=== PATIENT | female | born 1950 | race Two or more races ===

== ENCOUNTER 2018-08-15 21:41 | Emergency (ER) | payer SELFPAY ==
[2018-08-15 22:11] VITALS: BP 152/91; PULSE 81; TEMP 98.3; BMI 30.2
--- NOTE | 2018-08-15 22:39 | PDOC ---
History of Present Illness - General Chief Complaint: Injury Stated Complaint: FALL Time Seen by Provider: 08/15/18 22:39 History Source: Patient, Family Exam Limitations: No Limitations - History of Present Illness Initial Comments: 08/15/18 23:00 67 year old female with no PMH presented to ED for left wrist pain, left elbow pain, head laceration, head injury s/p fall down two stairs today. Pt stated she lost her balance on the second to last step, falling down and hitting her head. She denied chest pain, shortness of breath, lightheadedness, LOC, vomiting , weakness, numbness, tingling, visual changes, dizziness. Allergies: NKDA Past History - Past Medical History Allergies/Adverse Reactions: Allergies Allergy/AdvReac Type Severity Reaction Status Date / Time No Known Allergies Allergy Verified 08/16/18 09:00 Home Medications: Ambulatory Orders NK [No Known Home Medication] 08/16/18 - Suicide/Smoking/Psychosocial Hx Smoking History: Never smoked Have you smoked in the past 12 months: No Information on smoking cessation initiated: No Hx Alcohol Use: No Drug/Substance Use Hx: No Review of Systems - Review of Systems Able to Perform ROS?: Yes Comments:: 08/15/18 23:03 General: denied fever, chills, generalized weakness. HEENT: denied sore throat, rhinorrhea, ear pain. Heart: denied chest pain, palpitations, syncope, diaphoresis. Respiratory: denied shortness of breath, cough, sputum production, hemoptysis. Abdomen: denied abdominal pain, nausea, vomiting, diarrhea, constipation, blood in stool. : denied dysuria, increased urinary frequency, hematuria, urinary incontinence , flank pain. Back: denied back pain. Musculoskeletal: admitted to left wrist pain, left elbow pain. Neurological: admitted to headache. denied dizziness, numbness, tingling, weakness. Skin: admitted to laceration. denied rash, abrasion. *Physical Exam - Vital Signs Last Vital Signs Temp Pulse Resp BP Pulse Ox 98.3 F 81 18 152/91 96 08/15/18 21:45 08/15/18 21:45 08/15/18 21:45 08/15/18 21:45 08/15/18 21:45 - Physical Exam Comments: 08/15/18 23:04 Constitutional: Well-nourished, Well-developed, appearing stated age. HEENT: left frontal scalp hematoma with overlying oozing 4 cm laceration. left infraorbital facial tenderness and swelling. EOMI. PERRLA. Neck: supple. Full ROM. no midline c-spine tenderness. no paraspinal tenderness. Heart: regular rhythm. no murmurs, rubs or gallops. Chest: no tenderness to palpation of anterior or lateral chest wall bilaterally. Lungs: clear to auscultation bilaterally. no crackles, rhonchi or wheezing. no stridor. Abdomen: soft, nontender. normal bowel sounds. no rebound, guarding, masses. Back: no midline T-spine or L-spine tenderness to palpation. no low back tenderness. Pelvis: no hip tenderness. limbs equal in length. uterine prolapse. Extremities: left wrist deformity and swelling and tenderness. capillary refill <2 seconds bilateral hands. radial pulse 2+ bilaterally. full ROM left elbow. no elbow tenderness. Neurological: CN 2-12 grossly intact. moves all four extremities. Psych: awake, alert, oriented x3. follows commands. answers questions appropriately. Moderate Sedation - Procedure Monitoring Vital Signs: Procedure Monitoring Vital Signs Temperature 98.3 F 08/15/18 21:45 Pulse Rate 81 08/15/18 21:45 Respiratory Rate 18 08/15/18 21:45 Blood Pressure 152/91 08/15/18 21:45 O2 Sat by Pulse Oximetry (%) 96 08/15/18 21:45 Procedures - Splinting Splint Location: Left: Forearm Pre-Proc Neuro Vasc Exam: normal Hand-Made Type: orthoglass Splint Type: Yes: Sugar Tong Post-Proc Neuro Vasc Exam: normal Anatoliy Bandage: yes Sling: Yes Complications: No Post splint xray: No Good repositioning: Yes ED Treatment Course - LABORATORY CBC & Chemistry Diagram: 08/15/18 22:45 08/15/18 22:45 Medical Decision Making - Medical Decision Making 08/15/18 23:07 67 year old female with no PMH presented to ED after fall down stairs, complaining of left wrist pain, left elbow pain, headache, laceration. Last tetanus unknown. Initial Vital Signs Temp Pulse Resp BP Pulse Ox 98.3 F 81 18 152/91 96 08/15/18 21:45 08/15/18 21:45 08/15/18 21:45 08/15/18 21:45 08/15/18 21:45 Afebrile. No tachycardia. No tachypnea. Mild hypertension. No hypoxia on room air. Labs ordered: CBC, CMP, troponin, coags, T/S Imaging ordered: CT head, CT cervical spine, CT facial bones, left wrist XR, left elbow XR, left forearm XR, CXR, pelvis XR Medications ordered: tylenol IV, boostrix IM Compression dressing applied to left forehead. EKG performed at 08/15/18 23:41 CBC WBC 6.5 K/mm3 (4.0-10.0) 08/15/18 22:45 RBC 4.80 M/mm3 (3.60-5.2) 08/15/18 22:45 Hgb 15.0 GM/dL (10.7-15.3) 08/15/18 22:45 Hct 42.9 % (32.4-45.2) 08/15/18 22:45 MCV 89.5 fl (80-96) 08/15/18 22:45 MCH 31.3 pg (25.7-33.7) 08/15/18 22:45 MCHC 34.9 g/dl (32.0-36.0) 08/15/18 22:45 RDW 13.2 % (11.6-15.6) 08/15/18 22:45 Plt Count 175 K/MM3 (134-434) 08/15/18 22:45 MPV 9.1 fl (7.5-11.1) 08/15/18 22:45 Absolute Neuts (auto) 4.6 K/mm3 (1.5-8.0) 08/15/18 22:45 Neutrophils % 71.3 % (42.8-82.8) 08/15/18 22:45 Lymphocytes % 20.5 % (8-40) 08/15/18 22:45 Monocytes % 7.2 % (3.8-10.2) 08/15/18 22:45 Eosinophils % 0.6 % (0-4.5) 08/15/18 22:45 Basophils % 0.4 % (0-2.0) 08/15/18 22:45 Nucleated RBC % 0 % (0-0) 08/15/18 22:45 No leukocytosis. No anemia. 08/16/18 00:25 CT head report: no acute hemorrhage, midline shift, gross mass lesion, focal infarct. CT facial bones report: no gross fracture. both orbits appear intact. moderate soft tissue swelling over left lateral aspect ofthe face over the zygomatic arch and lateral aspect of the left orbit extending to the left lateral aspect of the forehead where soft tissue air is present compatible with a skin laceration. CT cervical spine report: no gross fracture/subluxation. deformity shaped of the aortic arch suggestive of tortuous proximal descending thoracic aorta. 08/16/18 00:58 XRs showing distal radius fractures. Pelvis XR: no fracture/dislocation - Pending official reports. CXR no acute pathology. - Pending official report. 08/16/18 01:27 Prolapsed uterus reduced. Sugartong splint applied to left forearm. Neurovascularly intact pre and post splinting. Pt tolerated procedure well. See above procedure note. Yessenia Chambers MD, EM Resident will be performing the laceration repair. 08/16/18 02:07 Urine Test Results Urine Color Straw 08/16/18 00:16 Urine Appearance Clear 08/16/18 00:16 Urine pH 6.0 (5.0-8.0) 08/16/18 00:16 Ur Specific [place] 1.038 (1.010-1.035) H 08/16/18 00:16 Urine Protein Negative (NEGATIVE) 08/16/18 00:16 Urine Glucose (UA) 3+ (NEGATIVE) H 08/16/18 00:16 Urine Ketones 1+ (NEGATIVE) H 08/16/18 00:16 Urine Blood Negative (NEGATIVE) 08/16/18 00:16 Urine Nitrite Negative (NEGATIVE) 08/16/18 00:16 Urine Bilirubin Negative (<2.0 mg/dL) 08/16/18 00:16 Ur Leukocyte Esterase Negative (NEGATIVE) 08/16/18 00:16 Negative for UTI. 08/16/18 02:49 CMP Sodium 137 mmol/L (136-145) 08/15/18 22:45 Potassium 4.0 mmol/L (3.5-5.1) 08/15/18 22:45 Chloride 104 mmol/L (98-107) 08/15/18 22:45 Carbon Dioxide 24 mmol/L (21-32) 08/15/18 22:45 Anion Gap 9 MMOL/L (8-16) 08/15/18 22:45 BUN 11 mg/dL (7-18) 08/15/18 22:45 Creatinine 0.7 mg/dL (0.55-1.3) 08/15/18 22:45 Creat Clearance w eGFR > 60 (>60) 08/15/18 22:45 Calcium 8.8 mg/dL (8.5-10.1) 08/15/18 22:45 Total Bilirubin 0.6 mg/dL (0.2-1) 08/15/18 22:45 AST 91 U/L (15-37) H 08/15/18 22:45 ALT 109 U/L (13-61) H 08/15/18 22:45 Alkaline Phosphatase 215 U/L (45-117) H 08/15/18 22:45 Troponin I 0.03 ng/ml (0.00-0.05) 08/15/18 22:45 Total Protein 7.8 g/dl (6.4-8.2) 08/15/18 22:45 Albumin 4.0 g/dl (3.4-5.0) 08/15/18 22:45 No electrolyte abnormalities. No JOHNNY. Transaminitis. Normal troponin. Medications ordered: normal saline bolus 1000 cc Laceration repair performed by Dr. Yessenia Chambers, please see her procedure note. - 3 4.0 deep sutures placed - 8 5.0 superficial sutures placed 08/16/18 05:14 POC glucose 374 Glucose responsive to sugar. Pt reported uterus prolapsed again. I offered to reduce the uterus again, she declined. Pt informed of results and instructed to follow up with PCP on transaminitis, hyperglycemia. Pt tolerated PO challenge, walked well unassisted. Pt reported she would like to go home. Family at bedside with patient. Pt discharged. 08/19/18 14:09 Follow up: Left wrist/forearm/elbow XR: partial impaction fracture of distal radius with ulnar styloid fracture. nails seen to be outside of patient. no elbow fracture. Hip/Pelvis XR: no fractures/subluxation. *DC/Admit/Observation/Transfer Diagnosis at time of Disposition: Distal radius fracture, Laceration, History of falling, Hyperglycemia, Transaminitis - Discharge Dispostion Disposition: HOME Condition at time of disposition: Improved Decision to Admit order: No - Referrals Referrals: Caleb Garduno MD [Staff Physician] - Abdelrahman Witt MD [Staff Physician] - Lisa Cohn MD [Staff Physician] - Christelle Jensen MD [Staff Physician] - Telma Vela DO [Staff Physician] - Castillo López MD [Non Staff, Medical] - Wilmer Tinsley MD [Staff Physician] - Rudy Suresh MD [Staff Physician] - Mayda Clark MD [Staff Physician] - Papi Lindsay DO [Staff Physician] - Tino Menendez DO [Staff Physician] - Doug Hernandez MD [Staff Physician] - Fabienne Lowery MD [Staff Physician] - Carson Cason MD [Staff Physician] - Ian Quach MD [Staff Physician] - - Patient Instructions Printed Discharge Instructions: How to Use a Sling, DI for Laceration Repair - - Simple, How to Prevent Falls, DI for Closed Head Injury, How to Take Care of Your Splint, DI for Distal Radius Fracture Additional Instructions: You were seen today for a fall. You have a distal radius fracture. You need to see an orthopedic doctor in 1-3 days. I have provided you with referrals for multiple physicians, call them tomorrow and make the soonest appointment available. You must keep the splint 100% dry and clean. Cover the arm with a garbage bag while showering/bathing. If the swelling of your arm increases and the splint becomes too tight, you can remove the splint but you MUST return to the Emergency Department immediately. Keep the stitches 100% clean and dry for 24-48 hours. After 48 hours you can let the water in the shower drip over the area, do not scrub. Then cover the area with bacitracin and change the gauze dressing every 24 hours. Return to the Emergency Department or to your primary care doctor's office for a wound check in 7 days. Follow up with a OBGYN doctor in 1-3 days for your prolapsed uterus. I have provided you with referrals. Follow up with a Enterprise Services Manager in 1-3 days for your elevated liver tests. I have provided you with referrals. Take Tylenol over the counter for your pain. Take as advised on label. Follow up with your primary care doctor in 1-3 days. Tell them about your high sugar level. Your care is not complete until you follow up. Return sooner to the Emergency Department for redness around the stitches, drainage from the stitches, fever, chills, vomiting, chest pain, shortness of breath, blueness of fingers, numbness/tingling of fingers, or any other new, worsening or concerning symptoms. HUNGARIAN TRANSLATION VIA [employer] TRANSLATE Fuiste visto hoy por tone cada. Tiene tone fractura del radio distal. Necesita ailyn a un mdico ortopdico en 1 a 3 leon. Le he proporcionado referencias para varios mdicos, thais mackay y ritu la kim ms rpida disponible. Debes mantener la frula 100% seca y limpia. Cubra el brazo con tone bolsa de basura mientras se baa / baa. Si la hinchazn de ramirez brazo aumenta y la frula se aprieta demasiado, puede quitarla, indira DEBE volver al Departamento de Emergencias de inmediato. Mantenga las puntadas 100% limpias y secas gloria 24-48 horas. Despus de 48 horas, puede dejar que el agua de la ducha gotee sobre el kylah, no frote. Luego cubra el kylah con bacitracina y cambie el apsito cada 24 horas. Regrese al Departamento de Emergencias o al consultorio de ramirez mdico de atencin primaria para tone revisin de la herida en 7 leon. Ritu un seguimiento con un mdico obstetra en 1 a 3 leon para ramirez tero prolapso. Te he proporcionado referencias. Ritu un seguimiento con un gastroenterlogo en 1 a 3 leon para july pruebas de hgado elevadas. Te he proporcionado referencias. [place] Tylenol sobre el mostrador para ramirez dolor. Clemente marbella se aconseja en la etiqueta. Ritu un seguimiento con ramirez mdico de atencin primaria en 1 a 3 leon. [place] sobre tu alto nivel de azcar. Ramirez atencin no est completa hasta que ritu un seguimiento. Regrese antes al Departamento de Emergencias para ailyn si hay enrojecimiento alrededor de los puntos, drenaje de los puntos, fiebre, escalofros, vmitos, dolor en el pecho, falta de aire al respirar, azulado de los dedos, entumecimiento u hormigueo en los dedos, o cualquier otro sntoma nuevo, que empeore o se relacione con ellos. Print Language: HUNGARIAN - Post Discharge Activity
[2018-08-15] MEDS ORDERED: ACETAMINOPHEN 1000 MG/100 ML VIAL (NON FORMULARY) IVPB ONE (23:03)
--- NOTE | 2018-08-15 23:16 | PDOC ---
Attending Attestation - HPI HPI: 08/16/18 00:49 The patient is a 67 year old female with no PMH who presents to the ED with left wrist pain, left elbow pain, and head laceration s/p trip and fall on some steps earlier today. Patient admits to head trauma but denies LOC. Patient denies any associated symptoms prior to the mechanical fall. Patient denies chest pain, palpitations, shortness of breath, LOC, lightheadedness, dizziness, N/V/C/D, weakness/numbness/tingling, or visual changes. Allergies: NKDA Surgeries: None reported Social: Denies toxic habits. - Physicial Exam PE: 08/16/18 01:11 ADULT PHYSICAL EXAM Constitutional: Awake, alert, oriented. No acute distress. Head:(+) Forehead hematoma. (+) 3cm left eyebrow laceration and tenderness; no active bleeding. Eyes: PERRL. EOMI. Conjunctivae are not pale. ENT: Mucous membranes are moist and intact. Posterior pharynx without exudates or erythema. Uvula midline. Neck: Supple. Full ROM. No lymphadenopathy. Cardiovascular: Regular rate. Regular rhythm. S1, S2 regular. Distal pulses are 2+ and symmetric. Pulmonary/Chest: No evidence of respiratory distress. Clear to auscultation bilaterally No wheezing, rales or rhonchi. Abdominal: Soft and non-distended. There is no tenderness. No rebound, guarding or rigidity. No organomegaly. No palpable masses. Good bowel sounds. Back: No step-offs or deformities. No bony tenderness : (+) Uterine prolapse. Musculoskeletal: (+) Left distal wrist deformity, FROM, sensation is intact, brisk cap refill, strength is intact. Moving all extremities. Skin: Skin is warm and dry. No petechiae. No purpura. Neurological: Alert and oriented to person, place, and time. Cranial nerves II -XII are grossly intact. Normal speech. Strength is grossly symmetric. No sensory deficits. Psychiatric: Good eye contact. Normal interaction, affect and behavior. <Rylee Ibanez - Last Filed: 08/16/18 01:14> - Resident Resident Name: Gladis Leonard - ED Attending Attestation I have performed the following: I have examined & evaluated the patient, The case was reviewed & discussed with the resident, I agree w/resident's findings & plan, Exceptions are as noted - Medical Decision Making 08/15/18 23:16 I, Dr. Fatmata Mujica, DO, attest that this document has been prepared under my direction and personally reviewed by me in its entirety. I further attest, that it accurately reflects all work, treatment, procedures and medical decision -making performed by me. 08/16/18 00:54 a/p: 67yo female with mechanical fall down the stairs -hit her head, L eyebrow lac without active bleeding - will need surgical repair , hematoma to forehead -ttp over upper eye on L -no neck ttp -deformity to distal forearm on L wrist, sensation intact distal, brisk cap refill, muscle strength intact -no abd pain, but states her uterus fell out when she fell -pt with uterine prolapse 08/16/18 00:56 no acute findings on ct 08/16/18 00:58 distal radius fx on xray pelvis xray negative cxr shows cardiomegaly 08/16/18 01:47 L wrist splinted and placed in a sling lac being repaired by the resident <Fatmata Mujica - Last Filed: 08/16/18 01:48> Heart Score/ECG Review - ECG Intrepretation Comment:: 08/16/18 01:02 sinus at 85, nl axis, nl interval, no acute st/t wave findings <Fatmata Mujica - Last Filed: 08/16/18 01:48>
[2018-08-15 23:19] LABS: BASO % 0.4 % (0-2.0); EOS % 0.6 % (0-4.5); HEMATOCRIT 42.9 % (32.4-45.2); LYMPH % 20.5 % (8-40); MCH 31.3 pg (25.7-33.7); MCHC 34.9 g/dl (32.0-36.0); MEAN CELL VOLUME 89.5 fl (80-96); MEAN PLT VOLUME 9.1 fl (7.5-11.1); MONO % 7.2 % (3.8-10.2); NEUT % 71.3 % (42.8-82.8); PLATELET COUNT 175 K/MM3 (134-434); RDW 13.2 % (11.6-15.6); WHITE BLOOD COUNT 6.5 K/mm3 (4.0-10.0)
[2018-08-15 23:45] LABS: INR 1.2 (0.83-1.09); PROTHROMBIN TIME (PATIENT) 14.2 SEC (9.7-13.0)
[2018-08-15] MEDS ORDERED: ACETAMINOPHEN INJECTION 100 ML IVPB ONE (23:52)
[2018-08-16] MEDS ORDERED: DIPHTH,PERTUSS(ACELL),TET 0.5 ML DISP.SYRIN IM ONE ×2 (00:56→01:59)
[2018-08-16 01:49] LABS: URINE APPEARANCE CLEAR; URINE BILIRUBIN NEGATIVE (<2.0 mg/dL); URINE COLOR STRAW; URINE GLUCOSE (UA) 3+ (NEGATIVE); URINE KETONE 1+ (NEGATIVE); URINE LEUK ESTERASE NEGATIVE (NEGATIVE); URINE NITRITE NEGATIVE (NEGATIVE); URINE PROTEIN NEGATIVE (NEGATIVE); URINE UROBILINOGEN NEGATIVE mg/dL (0.2-1.0)
[2018-08-16 02:46] LABS: ALK PHOS 215 U/L (45-117); ANION GAP 9 MMOL/L (8-16); BILIRUBIN,TOTAL 0.6 mg/dL (0.2-1); BLOOD UREA NITROGEN 11 mg/dL (7-18); CALCIUM 8.8 mg/dL (8.5-10.1); CHLORIDE 104 mmol/L (98-107); CO2 24 mmol/L (21-32); CREATININE 0.7 mg/dL (0.55-1.3); SGOT/AST 91 U/L (15-37); SGPT/ALT 109 U/L (13-61); SODIUM 137 mmol/L (136-145); TOT PROT 7.8 g/dl (6.4-8.2)
[2018-08-16 03:03] LABS: GLUCOSE,RANDOM 426 mg/dL (74-106)
[2018-08-16] MEDS ORDERED: SODIUM CHLORIDE 1,000 ML IV STA (03:11)
--- NOTE | 2018-08-16 04:40 | PDOC ---
*Physical Exam - Vital Signs Last Vital Signs Temp Pulse Resp BP Pulse Ox 98.3 F 81 18 152/91 96 08/15/18 21:45 08/15/18 21:45 08/15/18 21:45 08/15/18 21:45 08/15/18 21:45 ED Treatment Course - LABORATORY CBC & Chemistry Diagram: 08/15/18 22:45 08/15/18 22:45 - ADDITIONAL ORDERS Additional order review: Laboratory Results 08/16/18 08/15/18 08/15/18 00:16 22:45 22:45 PT with INR 14.20 H INR 1.20 H PTT (Actin FS) Sodium 137 Potassium 4.0 Chloride 104 Carbon Dioxide 24 Anion Gap 9 BUN 11 Creatinine 0.7 Creat Clearance w eGFR > 60 Random Glucose 426 H* Calcium 8.8 Total Bilirubin 0.6 AST 91 H ALT 109 H Alkaline Phosphatase 215 H Troponin I 0.03 Total Protein 7.8 Albumin 4.0 Urine Color Straw Urine Appearance Clear Urine pH 6.0 Ur Specific [place] 1.038 H Urine Protein Negative Urine Glucose (UA) 3+ H Urine Ketones 1+ H Urine Blood Negative Urine Nitrite Negative Urine Bilirubin Negative Urine Urobilinogen Negative Ur Leukocyte Esterase Negative Blood Type Antibody Screen 08/15/18 08/15/18 22:45 22:45 PT with INR INR PTT (Actin FS) 25.6 Sodium Potassium Chloride Carbon Dioxide Anion Gap BUN Creatinine Creat Clearance w eGFR Random Glucose Calcium Total Bilirubin AST ALT Alkaline Phosphatase Troponin I Total Protein Albumin Urine Color Urine Appearance Urine pH Ur Specific [place] Urine Protein Urine Glucose (UA) Urine Ketones Urine Blood Urine Nitrite Urine Bilirubin Urine Urobilinogen Ur Leukocyte Esterase Blood Type O POSITIVE Antibody Screen Negative 08/15/18 22:45 RBC 4.80 MCV 89.5 MCHC 34.9 RDW 13.2 MPV 9.1 Neutrophils % 71.3 Lymphocytes % 20.5 Monocytes % 7.2 Eosinophils % 0.6 Basophils % 0.4 - Medications Given in the ED: ED Medications Discontinued Medications Generic Name Dose Route Start Last Admin Trade Name Freq PRN Reason Stop Dose Admin Acetaminophen 1,000 mg 08/15/18 23:03 08/16/18 00:26 Ofirmev Injection - IVPB 08/15/18 23:04 1,000 mg ONCE ONE Administration Diphtheria/Tetanus/Acell Pertussis 0.5 ml 08/16/18 00:56 08/16/18 02:43 Boostrix - IM 08/16/18 00:57 0.5 ml .ONCE ONE Administration Sodium Chloride 1,000 mls @ 1,000 mls/hr 08/16/18 03:11 08/16/18 03:36 Normal Saline - IV 08/16/18 04:10 1,000 mls/hr ASDIR STA Administration Medical Decision Making - Medical Decision Making Montserrat Laecy is a 67yo woman who presented following a fall down stairs. She sustained several injuries including a forehead laceration located over the lateral right eyebrow. The laceration was irregular, approximately 3cm in length , and extended into the subcutaneous tissue. There was no muscle involvement and no visible bone. The wound was anesthetized with 4cc of 1% lidocaine. The wound was then irrigated with copious saline and explored. The base of the wound was visualized , and no foreign material was present. 4-0 vic[address] was use to place 3 deep simple interrupted sutures. 5-0 proline was then used to place 8 simple interrupted sutures at the skin. Wound edges were well approximated, and adequate hemostasis was achieved. A sterile gauze dressing was placed over the wound, and Ms Lacey was provided with wound care instructions. The procedure was tolerated well, and there were no complications. Supervised by Dr Mujica. Yessenia Chambers PGY1 *DC/Admit/Observation/Transfer Diagnosis at time of Disposition: Distal radius fracture, Laceration, History of falling, Hyperglycemia, Transaminitis - Discharge Dispostion Disposition: HOME Condition at time of disposition: Improved - Referrals Referrals: Caleb Garduno MD [Staff Physician] - Abdelrahman Witt MD [Staff Physician] - Lisa Cohn MD [Staff Physician] - Christelle Jensen MD [Staff Physician] - Telma Vela DO [Staff Physician] - Castillo López MD [Non Staff, Medical] - Wilmer Tinsley MD [Staff Physician] - Rudy Suresh MD [Staff Physician] - Mayda Clark MD [Staff Physician] - Doug Hernandez MD [Staff Physician] - Fabienne Lowery MD [Staff Physician] - Carson Cason MD [Staff Physician] - Papi Lindsay DO [Staff Physician] - Tino Menendez DO [Staff Physician] - Ian Quach MD [Staff Physician] - - Patient Instructions Printed Discharge Instructions: How to Use a Sling, DI for Laceration Repair - - Simple, How to Prevent Falls, DI for Closed Head Injury, How to Take Care of Your Splint, DI for Distal Radius Fracture Additional Instructions: You were seen today for a fall. You have a distal radius fracture. You need to see an orthopedic doctor in 1-3 days. I have provided you with referrals for multiple physicians, call them tomorrow and make the soonest appointment available. You must keep the splint 100% dry and clean. Cover the arm with a garbage bag while showering/bathing. If the swelling of your arm increases and the splint becomes too tight, you can remove the splint but you MUST return to the Emergency Department immediately. Keep the stitches 100% clean and dry for 24-48 hours. After 48 hours you can let the water in the shower drip over the area, do not scrub. Then cover the area with bacitracin and change the dressing every 24 hours. Return to the Emergency Department or to your primary care doctor's office for a wound check in 7 days. Follow up with a OBGYN doctor in 1-3 days for your prolapsed uterus. I have provided you with referrals. Follow up with a C++ Professor in 1-3 days for your elevated liver tests. I have provided you with referrals. Take Tylenol over the counter for your pain. Take as advised on label. Follow up with your primary care doctor in 1-3 days. Tell them about your high sugar level. Your care is not complete until you follow up. Return sooner to the Emergency Department for redness around the stitches, drainage from the stitches, fever, chills, vomiting, chest pain, shortness of breath, blueness of fingers, numbness/tingling of fingers, or any other new, worsening or concerning symptoms. KAZAKH TRANSLATION VIA [employer] TRANSLATE Fuiste visto hoy por tone cada. Tiene tone fractura del radio distal. Necesita ailyn a un mdico ortopdico en 1 a 3 leon. Le he proporcionado referencias para varios mdicos, llmelos maana y ritu la kim ms rpida disponible. Debes mantener la frula 100% seca y limpia. Cubra el brazo con tone bolsa de basura mientras se baa / baa. Si la hinchazn de ramirez brazo aumenta y la frula se aprieta demasiado, puede quitarla, indira DEBE volver al Departamento de Emergencias de inmediato. Mantenga las puntadas 100% limpias y secas gloria 24-48 horas. Despus de 48 horas, puede dejar que el agua de la ducha gotee sobre el kylah, no frote. Luego cubra el kylah con bacitracina y cambie el apsito cada 24 horas. Regrese al Departamento de Emergencias o al consultorio de ramirez mdico de atencin primaria para tone revisin de la herida en 7 leon. Ritu un seguimiento con un mdico obstetra en 1 a 3 leon para ramirez tero prolapso. Te he proporcionado referencias. Ritu un seguimiento con un gastroenterlogo en 1 a 3 leon para july pruebas de hgado elevadas. Te he proporcionado referencias. [place] Tylenol sobre el mostrador para ramirez dolor. Clemente marbella se aconseja en la etiqueta. Ritu un seguimiento con ramirez mdico de atencin primaria en 1 a 3 leon. [place] sobre tu alto nivel de azcar. Ramirez atencin no est completa hasta que ritu un seguimiento. Regrese antes al Departamento de Emergencias para ailyn si hay enrojecimiento alrededor de los puntos, drenaje de los puntos, fiebre, escalofros, vmitos, dolor en el pecho, falta de aire al respirar, azulado de los dedos, entumecimiento u hormigueo en los dedos, o cualquier otro sntoma nuevo, que empeore o se relacione con ellos. Print Language: KAZAKH - Post Discharge Activity Procedures - Laceration/Wound Repair Left Lateral Face Wound Length: 2.6 to 5.0 cm Wound Explored: clean Wound's Depth, Shape: superficial (Into subQ tissue), irregular, flap Irrigated w/ Saline: Yes Anesthesia: 1% Lidocaine Amount of Anesthetic (ccs): 4 Wound Debrided: minimal Wound Repaired With: Sutures Suture Size/Type: 5:0, proline Number of Sutures: 8 Layer Closure: Yes Deep Layer Suture Size/Type: 4:0, vycril Number of Deep Layer Sutures: 3 Sterile Dressing Applied: Yes
--- NOTE | 2018-08-16 07:18 | PDOC ---
*Physical Exam - Vital Signs Last Vital Signs Temp Pulse Resp BP Pulse Ox 98.3 F 81 18 152/91 96 08/15/18 21:45 08/15/18 21:45 08/15/18 21:45 08/15/18 21:45 08/15/18 21:45 ED Treatment Course - LABORATORY CBC & Chemistry Diagram: 08/15/18 22:45 08/15/18 22:45 - ADDITIONAL ORDERS Additional order review: Laboratory Results 08/16/18 08/16/18 08/15/18 04:49 00:16 22:45 PT with INR INR PTT (Actin FS) Sodium 137 Potassium 4.0 Chloride 104 Carbon Dioxide 24 Anion Gap 9 BUN 11 Creatinine 0.7 Creat Clearance w eGFR > 60 POC Glucometer 374 Random Glucose 426 H* Calcium 8.8 Total Bilirubin 0.6 AST 91 H ALT 109 H Alkaline Phosphatase 215 H Troponin I 0.03 Total Protein 7.8 Albumin 4.0 Urine Color Straw Urine Appearance Clear Urine pH 6.0 Ur Specific [place] 1.038 H Urine Protein Negative Urine Glucose (UA) 3+ H Urine Ketones 1+ H Urine Blood Negative Urine Nitrite Negative Urine Bilirubin Negative Urine Urobilinogen Negative Ur Leukocyte Esterase Negative Blood Type Antibody Screen 08/15/18 08/15/18 08/15/18 22:45 22:45 22:45 PT with INR 14.20 H INR 1.20 H PTT (Actin FS) 25.6 Sodium Potassium Chloride Carbon Dioxide Anion Gap BUN Creatinine Creat Clearance w eGFR POC Glucometer Random Glucose Calcium Total Bilirubin AST ALT Alkaline Phosphatase Troponin I Total Protein Albumin Urine Color Urine Appearance Urine pH Ur Specific [place] Urine Protein Urine Glucose (UA) Urine Ketones Urine Blood Urine Nitrite Urine Bilirubin Urine Urobilinogen Ur Leukocyte Esterase Blood Type O POSITIVE Antibody Screen Negative 08/16/18 08/15/18 04:49 22:45 RBC 4.80 MCV 89.5 MCHC 34.9 RDW 13.2 MPV 9.1 Neutrophils % 71.3 Lymphocytes % 20.5 Monocytes % 7.2 Eosinophils % 0.6 Basophils % 0.4 POC Glucometer 374 - Medications Given in the ED: ED Medications Discontinued Medications Generic Name Dose Route Start Last Admin Trade Name Freq PRN Reason Stop Dose Admin Acetaminophen 1,000 mg 08/15/18 23:03 08/16/18 00:26 Ofirmev Injection - IVPB 08/15/18 23:04 1,000 mg ONCE ONE Administration Diphtheria/Tetanus/Acell Pertussis 0.5 ml 08/16/18 00:56 08/16/18 02:43 Boostrix - IM 08/16/18 00:57 0.5 ml .ONCE ONE Administration Sodium Chloride 1,000 mls @ 1,000 mls/hr 08/16/18 03:11 08/16/18 03:36 Normal Saline - IV 08/16/18 04:10 1,000 mls/hr ASDIR STA Administration Medical Decision Making - Medical Decision Making 08/16/18 07:17 Received call from Radiology that CXR showed possible aortic enlargement. Patient's daughter contacted at [phone], patient is currently sleeping. Instructed to return to ED for CT immediately. *DC/Admit/Observation/Transfer Diagnosis at time of Disposition: Distal radius fracture, Laceration, History of falling, Hyperglycemia, Transaminitis - Discharge Dispostion Disposition: HOME Condition at time of disposition: Improved - Referrals Referrals: Caleb Garduno MD [Staff Physician] - Abdelrahman Witt MD [Staff Physician] - Lisa Cohn MD [Staff Physician] - Christelle Jensen MD [Staff Physician] - Telma Vela DO [Staff Physician] - Castillo López MD [Non Staff, Medical] - Wilmer Tinsley MD [Staff Physician] - Rudy Suresh MD [Staff Physician] - Mayda Clark MD [Staff Physician] - Doug Hernandez MD [Staff Physician] - Fabienne Lowery MD [Staff Physician] - Carson Cason MD [Staff Physician] - Papi Lindsay DO [Staff Physician] - Tino Menendez DO [Staff Physician] - Ian Quach MD [Staff Physician] - - Patient Instructions Printed Discharge Instructions: How to Use a Sling, DI for Laceration Repair - - Simple, How to Prevent Falls, DI for Closed Head Injury, How to Take Care of Your Splint, DI for Distal Radius Fracture Additional Instructions: You were seen today for a fall. You have a distal radius fracture. You need to see an orthopedic doctor in 1-3 days. I have provided you with referrals for multiple physicians, call them tomorrow and make the soonest appointment available. You must keep the splint 100% dry and clean. Cover the arm with a garbage bag while showering/bathing. If the swelling of your arm increases and the splint becomes too tight, you can remove the splint but you MUST return to the Emergency Department immediately. Keep the stitches 100% clean and dry for 24-48 hours. After 48 hours you can let the water in the shower drip over the area, do not scrub. Then cover the area with bacitracin and change the gauze dressing every 24 hours. Return to the Emergency Department or to your primary care doctor's office for a wound check in 7 days. Follow up with a OBGYN doctor in 1-3 days for your prolapsed uterus. I have provided you with referrals. Follow up with a Commercial Drone Pilot in 1-3 days for your elevated liver tests. I have provided you with referrals. Take Tylenol over the counter for your pain. Take as advised on label. Follow up with your primary care doctor in 1-3 days. Tell them about your high sugar level. Your care is not complete until you follow up. Return sooner to the Emergency Department for redness around the stitches, drainage from the stitches, fever, chills, vomiting, chest pain, shortness of breath, blueness of fingers, numbness/tingling of fingers, or any other new, worsening or concerning symptoms. [place]AN[place] TRANSLATION VIA [employer] TRANSLATE Fuiste visto hoy por tone cada. Tiene tone fractura del radio distal. Necesita ailyn a un mdico ortopdico en 1 a 3 leon. Le he proporcionado referencias para varios mdicos, llmelos maana y ritu la kim ms rpida disponible. [place] mantener la frula 100% seca y limpia. Cubra el brazo con tone bolsa de basura mientras se baa / baa. Si la hinchazn de ramirez brazo aumenta y la frula se aprieta demasiado, puede quitarla, indira DEBE volver al Departamento de Emergencias de inmediato. Mantenga las puntadas 100% limpias y secas gloria 24-48 horas. Despus de 48 horas, puede dejar que el agua de la ducha gotee sobre el kylah, no frote. Luego cubra el kylah con bacitracina y cambie el apsito cada 24 horas. Regrese al Departamento de Emergencias o al consultorio de ramirez mdico de atencin primaria para tone revisin de la herida en 7 leon. Ritu un seguimiento con un mdico obstetra en 1 a 3 leon para ramirez tero prolapso. Te he proporcionado referencias. Ritu un seguimiento con un gastroenterlogo en 1 a 3 leon para july pruebas de hgado elevadas. Te he proporcionado referencias. [place] Tylenol sobre el mostrador para ramirez dolor. Clemente marbella se aconseja en la etiqueta. Ritu un seguimiento con ramirez mdico de atencin primaria en 1 a 3 leon. [place] sobre tu alto nivel de azcar. Ramirez atencin no est completa hasta que ritu un seguimiento. Regrese antes al Departamento de Emergencias para ailyn si hay enrojecimiento alrededor de los puntos, drenaje de los puntos, fiebre, escalofros, vmitos, dolor en el pecho, falta de aire al respirar, azulado de los dedos, entumecimiento u hormigueo en los dedos, o cualquier otro sntoma nuevo, que empeore o se relacione con ellos. Print Language: JORDANIAN - Post Discharge Activity
--- NOTE | 2018-08-16 14:18 | EKG ---
Test Reason : Blood Pressure : / mmHG Vent. Rate : 085 BPM Atrial Rate : 085 BPM P-R Int : 146 ms QRS Dur : 076 ms QT Int : 390 ms P-R-T Axes : -13 010 051 degrees QTc Int : 464 ms NORMAL SINUS RHYTHM NORMAL ECG NO PREVIOUS ECGS AVAILABLE Confirmed by GISELE WESLEY MD ([id number]) on 08/16/2018 2:17:29 PM Referred By: Confirmed By:GISELE WESLEY MD
== END 2018-08-16 05:53 | disposition home or self-care (01) ==
LOC: JER 21:41
PROC: 3E0234Z Introduction of Serum, Toxoid and Vaccine into Muscle, Percutaneous Approach (ICD-10-PCS; principal; 2018-08-15)
PROC: 0JQ10ZZ Repair Face Subcutaneous Tissue and Fascia, Open Approach (ICD-10-PCS; 2018-08-15)
PROC: 2W3DX1Z Immobilization of Left Lower Arm using Splint (ICD-10-PCS; 2018-08-15)
PROC: 3E0337Z Introduction of Electrolytic and Water Balance Substance into Peripheral Vein, Percutaneous Approach (ICD-10-PCS; 2018-08-15)
PROC: 3E033NZ Introduction of Analgesics, Hypnotics, Sedatives into Peripheral Vein, Percutaneous Approach (ICD-10-PCS; 2018-08-15)
DX: S52.592A Other fractures of lower end of left radius, initial encounter for closed fracture (principal); S01.81XA Laceration without foreign body of other part of head, initial encounter; W10.8XXA Fall (on) (from) other stairs and steps, initial encounter; Y93.89 Activity, other specified; Y92.89 Other specified places as the place of occurrence of the external cause; Y99.8 Other external cause status
CPT/HCPCS: 36415; 70450-TC; 70486-TC; 71045-TC-FY; 72125-TC; 72170-TC-FY; 73070-TC-LT-FY; 73090-TC-LT-FY; 73110-TC-LT-FY; 80053; 81003; 82962; 84484; 85025; 85610; 85730; 86850; 86900; 86901; 87086; 90715; 93005; 93010; 99282-25; J0131; J7030

== ENCOUNTER 2018-08-16 08:54 | Emergency (ER) | payer SELFPAY ==
[2018-08-16 09:03] VITALS: TEMP 98.5; BMI 28.3
--- NOTE | 2018-08-16 09:30 | PDOC ---
History of Present Illness - General Chief Complaint: Revisit, Lab Variance Stated Complaint: SENT BY PCP Time Seen by Provider: 08/16/18 09:06 History Source: Patient - History of Present Illness Initial Comments: 08/16/18 09:26 Patient is a 67F with no reported medical history (labs yesterday suggest DM) here today after being called back for an abnormal x-ray. Patient's CXR yesterday showed a prominent aorta, and was called back for CTA. Patient was evaluated in the ED for a fall. Head laceration was repaired and patient was splinted for L radius fracture. Patient endorses pain to the L arm and head. Denies fevers, chills nausea, vomiting. Denies chest pain, shortness of breath. Denies leg pain and swelling. Denies abdominal pain. Endorses a prolapsed uterus. Past History - Past Medical History Allergies/Adverse Reactions: Allergies Allergy/AdvReac Type Severity Reaction Status Date / Time No Known Allergies Allergy Verified 08/16/18 09:00 Home Medications: Ambulatory Orders NK [No Known Home Medication] 08/16/18 COPD: No - Immunization History Immunization Up to Date: Yes - Suicide/Smoking/Psychosocial Hx Smoking History: Never smoked Have you smoked in the past 12 months: No Hx Alcohol Use: No Drug/Substance Use Hx: No Review of Systems - Review of Systems Able to Perform ROS?: Yes Comments:: 08/16/18 09:29 GENERAL/CONSTITUTIONAL: No fever or chills. No weakness. HEAD, EYES, EARS, NOSE AND THROAT: No change in vision. No sore throat. CARDIOVASCULAR: No chest pain or shortness of breath RESPIRATORY: No cough, wheezing, or hemoptysis. GASTROINTESTINAL: No nausea, vomiting, diarrhea or constipation. GENITOURINARY: No dysuria, frequency, or change in urination. MUSCULOSKELETAL: +L arm pain. No neck or back pain. SKIN: No rash NEUROLOGIC: +headache, No vertigo, loss of consciousness, or change in strength/ sensation. ENDOCRINE: No increased thirst. No abnormal weight change HEMATOLOGIC/LYMPHATIC: No anemia, easy bleeding, or history of blood clots. ALLERGIC/IMMUNOLOGIC: No hives or skin allergy. *Physical Exam - Vital Signs Last Vital Signs Temp Pulse Resp BP Pulse Ox 98.5 F 74 18 159/80 95 08/16/18 09:01 08/16/18 09:01 08/16/18 09:01 08/16/18 09:01 08/16/18 09:01 - Physical Exam Comments: 08/16/18 09:30 GENERAL: Awake, alert, and fully oriented, in no acute distress HEAD: Sutured wound over L methodist EYES: PERRLA, EOMI, sclera anicteric, conjunctiva clear ENT: Auricles normal inspection, hearing grossly normal, nares patent, oropharynx clear without exudates. Moist mucosa NECK: Normal ROM, supple, no lymphadenopathy, JVD, or masses LUNGS: No distress, speaks full sentences, clear to auscultation bilaterally HEART: Regular rate and rhythm, normal S1 and S2, no murmurs, rubs or gallops, peripheral pulses normal and equal bilaterally. ABDOMEN: Soft, nontender, normoactive bowel sounds. No guarding, no rebound. No masses EXTREMITIES: Splinted L arm, neurovascularly intact NEUROLOGICAL: Cranial nerves II through XII grossly intact. Normal speech, normal gait, no focal sensorimotor deficits SKIN: Warm, Dry, normal turgor, no rashes or lesions noted. Moderate Sedation - Procedure Monitoring Vital Signs: Procedure Monitoring Vital Signs Temperature 98.5 F 08/16/18 09:01 Pulse Rate 74 08/16/18 09:01 Respiratory Rate 18 08/16/18 09:01 Blood Pressure 159/80 08/16/18 09:01 O2 Sat by Pulse Oximetry (%) 95 08/16/18 09:01 ED Treatment Course - RADIOLOGY Radiology Studies Ordered: Category Date Time Status CHEST CTA [CT] Stat CT Scan 08/16/18 09:10 Ordered Medical Decision Making - Medical Decision Making 08/16/18 09:32 Patient is 67F here today with abnormal chest x-ray. Vitals normal and stable. No chest pain. Will evaluate with CTA, discharge if normal. Injuries re- evaluated and workup reviewed, no need for further trauma evaluation. 08/16/18 11:00 CT shows tortuous aorta, but no dilation, aneurysms or dissection. Will discharge with instructions to follow up as previously planned. *DC/Admit/Observation/Transfer Diagnosis at time of Disposition: Distal radius fracture, Laceration, History of falling - Discharge Dispostion Disposition: HOME Condition at time of disposition: Good Decision to Admit order: No - Referrals - Patient Instructions Additional Instructions: You were seen today for a fall. You have a distal radius fracture. You need to see an orthopedic doctor in 1-3 days. I have provided you with referrals for multiple physicians, call them tomorrow and make the soonest appointment available. You must keep the splint 100% dry and clean. Cover the arm with a garbage bag while showering/bathing. If the swelling of your arm increases and the splint becomes too tight, you can remove the splint but you MUST return to the Emergency Department immediately. Keep the stitches 100% clean and dry for 24-48 hours. After 48 hours you can let the water in the shower drip over the area, do not scrub. Then cover the area with bacitracin and change the gauze dressing every 24 hours. Return to the Emergency Department or to your primary care doctor's office for a wound check in 7 days. Follow up with a OBGYN doctor in 1-3 days for your prolapsed uterus. I have provided you with referrals. Follow up with a Wildlife Control Agent in 1-3 days for your elevated liver tests. I have provided you with referrals. Take Tylenol over the counter for your pain. Take as advised on label. Follow up with your primary care doctor in 1-3 days. Tell them about your high sugar level. Your care is not complete until you follow up. Return sooner to the Emergency Department for redness around the stitches, drainage from the stitches, fever, chills, vomiting, chest pain, shortness of breath, blueness of fingers, numbness/tingling of fingers, or any other new, worsening or concerning symptoms. [place]ESE TRANSLATION VIA [employer] TRANSLATE Fuiste visto hoy por tone cada. Tiene tone fractura del radio distal. Necesita ailyn a un mdico ortopdico en 1 a 3 leon. Le he proporcionado referencias para varios mdicos, llmelos maana y ritu la kim ms rpida disponible. [place] mantener la frula 100% seca y limpia. Cubra el brazo con tone bolsa de basura mientras se baa / baa. Si la hinchazn de arriaza brazo aumenta y la frula se aprieta demasiado, puede quitarla, indira DEBE volver al Departamento de Emergencias de inmediato. Mantenga las puntadas 100% limpias y secas gloria 24-48 horas. Despus de 48 horas, puede dejar que el agua de la ducha gotee sobre el kylah, no frote. Luego cubra el kylah con bacitracina y cambie el apsito cada 24 horas. Regrese al Departamento de Emergencias o al consultorio de arriaza mdico de atencin primaria para tone revisin de la herida en 7 leon. Ritu un seguimiento con un mdico obstetra en 1 a 3 leon para arriaza tero prolapso. Te he proporcionado referencias. Ritu un seguimiento con un gastroenterlogo en 1 a 3 leon para july pruebas de hgado elevadas. Te he proporcionado referencias. [place] Tylenol sobre el mostrador para arriaza dolor. Clemente marbella se aconseja en la etiqueta. Ritu un seguimiento con arriaza mdico de atencin primaria en 1 a 3 leon. [place] sobre tu alto nivel de azcar. Arriaza atencin no est completa hasta que ritu un seguimiento. Regrese antes al Departamento de Emergencias para ailyn si hay enrojecimiento alrededor de los puntos, drenaje de los puntos, fiebre, escalofros, vmitos, dolor en el pecho, falta de aire al respirar, azulado de los dedos, entumecimiento u hormigueo en los dedos, o cualquier otro sntoma nuevo, que empeore o se relacione con ellos. - Post Discharge Activity
--- NOTE | 2018-08-16 09:43 | PDOC ---
Attending Attestation - Resident Resident Name: KobiNicola palomo - ED Attending Attestation I have performed the following: I have examined & evaluated the patient, The case was reviewed & discussed with the resident, I agree w/resident's findings & plan, Exceptions are as noted - HPI HPI: 08/16/18 09:46 The patient is a 67 year old female, with no significant PMH, who presents to the emergency department for return visit for abnormal chest x-ray taken yesterday. Patients chest x-ray report demonstrates prominent aorta prompting patient to return today for CTA. The patient was seen yesterday for evaluation s /p slip and fall at [facility] ED and diagnosed with a radial fracture of the left arm. The patient was splinted for the left radius fracture and had a head laceration repaired at that time. Upon evaluation today, the patient endorses pain to the head and left arm from the fall. The patient denies chest pain, shortness of breath, headache and dizziness. Denies fever, chills, nausea, vomit, diarrhea and constipation. Denies dysuria, frequency, urgency and hematuria. Allergies: NKA Past surgical history: None reported. Social history: No reported - Physicial Exam PE: 08/16/18 09:47 agree with resident exam - Medical Decision Making 08/16/18 09:47 67yo F presents to the ED after a call back for incidental finding on CXR of enlarged aortic knob c/f aneurysm or mass. Pt denies CP, SOB, back pain Denies recent excessive weight loss Vitals stable, pt well appearing Pulses/BP equal in both UE/LE Plan for CTA chest w/wo to eval for aneurysm or mass 08/16/18 11:45 CTA negative for acute pathology Aorta tortuous but no aneurysm or dissection Pt asymptomatic, requests DC home I discussed the physical exam findings, ancillary test results and final diagnoses with the patient. I answered all of the patient's questions. The patient was satisfied with the care received and felt comfortable with the discharge plan and treatment plan. The patient will call their primary care physician within 24 hours to arrange follow-up and will return to the Emergency Department with any new, persistent or worsening symptoms. <Adonay Alvarez - Last Filed: 08/16/18 13:47> Attestations - Attestations 08/16/18 11:20 Documentation prepared by Bakari Crowley, acting as medical laboratory technicians for Adonay Alvarez MD. <Bakari Crowley - Last Filed: 08/16/18 11:20>
[2018-08-16 11:31] VITALS: BP 155/82; PULSE 68
== END 2018-08-16 11:29 | disposition home or self-care (01) ==
LOC: JER 08:54
DX: S52.502A Unspecified fracture of the lower end of left radius, initial encounter for closed fracture (principal); X58.XXXA Exposure to other specified factors, initial encounter; Y93.89 Activity, other specified; Y92.9 Unspecified place or not applicable
CPT/HCPCS: 71275-TC; 99282-25